=== PATIENT | female | born 1970 | race African-American/Black ===

== ENCOUNTER 2024-06-09 13:24 | Day surgery (SDC) | payer OTHER ==
[2024-06-09] MEDS ORDERED: Acetaminophen 500 MG TAB ONE (14:05)
[2024-06-09] MEDS ORDERED: diphenhydrAMINE 25 MG CAP ONE (14:05)
[2024-06-09] MEDS: Acetaminophen 500 MG TAB PO SCH (14:06)
[2024-06-09] MEDS: diphenhydrAMINE 25 MG CAP PO SCH (14:07)
[2024-06-09 14:44] VITALS: TEMP 98.6
[2024-06-09] MEDS ORDERED: cloNIDine 0.1 MG TAB PO PRN (15:21)
[2024-06-09 16:49] VITALS: BP 150/70
== END 2024-06-09 16:50 | disposition home or self-care (01) ==
LOC: ONC/OP 13:24
PROVIDERS: ATTEND Internal Medicine
DX: D64.9 Anemia, unspecified (principal); D69.6 Thrombocytopenia, unspecified
CPT/HCPCS: 36430; 86850; 86900; 86901; P9016

== ENCOUNTER 2024-06-19 13:09 | Day surgery (SDC) | payer OTHER ==
[2024-06-19] MEDS ORDERED: diphenhydrAMINE 25 MG CAP ONE (14:18)
[2024-06-19] MEDS ORDERED: Acetaminophen 500 MG TAB ONE (14:18)
[2024-06-19] MEDS: diphenhydrAMINE 25 MG CAP PO SCH (14:20)
[2024-06-19] MEDS: Acetaminophen 500 MG TAB PO SCH (14:20)
[2024-06-19 17:49] VITALS: BP 171/79; TEMP 98.1
== END 2024-06-19 17:50 | disposition home or self-care (01) ==
LOC: ONC/OP 13:09
PROVIDERS: ATTEND Internal Medicine
DX: D64.9 Anemia, unspecified (principal); D69.6 Thrombocytopenia, unspecified
CPT/HCPCS: 36430; 86850; 86900; 86901; P9016

== ENCOUNTER 2024-07-23 21:44 | Inpatient (IN) | payer OTHER ==
[2024-07-23] MEDS ORDERED: Acetaminophen 500 MG TAB ONE (22:44)
[2024-07-23] MEDS ORDERED: Morphine 2 MG/ML VIAL ONE (22:45)
[2024-07-23] MEDS ORDERED: diphenhydrAMINE 50 MG/ML VIAL ONE (22:45)
[2024-07-23] MEDS ORDERED: Ketorolac Tromethamine 30 MG (1 mL) VIAL ONE (22:45)
[2024-07-23] MEDS ORDERED: Metoclopramide HCl 10 MG (2 mL) VIAL ONE (22:45)
[2024-07-23 23:02] LABS: #Basophils Less than 0.03 10x3/uL (0.0-0.2); #Eosinophils Less than 0.03 10x3/uL (0.0-0.7); %Basophils 0.1 % (0.0-1.0); %Monocytes 0.6 % (0.0-10.0); %Neutrophils 87.4 % (42.0-75.0); Hematocrit 35.2 % (36.0-47.0); Hemoglobin 10.1 g/dL (12.0-16.0); Mean Corpuscular HGB CONC 28.7 g/dL (32.0-36.0); Mean Corpuscular Hemoglobin 22.3 pg (27.0-31.0); Mean Corpuscular Volume 77.9 fL (78.0-98.0); Mean Platelet Volume 8.7 fL (7.4-10.4); Platelet Count 335 10x3/uL (130-400); RBC Distribution Width 26.7 % (11.5-14.5); Red Blood Cell (RBC) Count 4.52 mill/uL (4.20-5.40)
[2024-07-23 23:18] LABS: ALT (SGPT) 10 U/L (Less than 34); AST (SGOT) 28 U/L (11-34); Albumin 3.2 g/dL (3.1-4.5); Alkaline Phosphatase 81 U/L (40-110); Anion Gap 14 mmol/L (10-20); BUN (Urea Nitrogen) 11 mg/dL (9.8-20.1); Bilirubin, Total 0.5 mg/dL (0.3-1.2); Calc. Creatinine Clearance 0 mL/min (70-130); Calcium 9.8 mg/dL (7.8-10.44); Carbon Dioxide 23 mmol/L (22-29); Chloride 104 mmol/L (98-107); Estimated GFR 104; Globulin 6.1 g/dL (2.4-3.5); Glucose 125 mg/dL (70-105); Potassium 3.7 mmol/L (3.5-5.1); Protein, Total 9.3 g/dL (6.0-8.3); Sodium 137 mmol/L (136-145)
[2024-07-23 23:35] LABS: Anisocytosis MODERATE=16-30 cells (100X) (0-5/hpf); Hypochromia SLIGHT = 6-15 cells (100X) (0-5/hpf); Microcytosis SLIGHT = 6-15 cells (100X) (0-5/hpf); Plasma Cells 0 % (0-0); Polychromasia SLIGHT = 2-3 cells (100X) (0-2/hpf)
[2024-07-23] MEDS ORDERED: hydrALAZINE 20 MG/ML VIAL ONE (23:42)
[2024-07-24] MEDS ORDERED: hydrALAZINE 20 MG/ML VIAL ONE (01:23)
[2024-07-24 01:25] LABS: Bacteria/HPF None Seen HPF (None Seen); Bilirubin Negative (Negative); Blood, Urine 1+ (Negative); CAUTI Indications for Culture Dysuria,urgency,freq; Clarity Clear (Clear); Glucose, Urine (Dipstick) Normal (Negative); Ketone, Urine Negative (Negative); Leukocyte Negative Leu/uL (Negative); Nitrite Negative (Negative); Protein, Urine (Dipstick) 50 mg/dL (Neg-Trace); RBC/HPF 0-3 HPF (0-3); Specific Gravity, Urine 1.007 (1.002-1.036); Squamous Epithelial 0-3 HPF (0-3); Urobilinogen Normal mg/dL (Less than 2); WBC/HPF None Seen HPF (0-3)
[2024-07-24 01:27] LABS: Urine Culture Reflex No No
[2024-07-24] MEDS ORDERED: Ondansetron PF 4 MG/2 ML Vial IVP PRN (01:50)
[2024-07-24] MEDS ORDERED: hydrALAZINE 20 MG/ML VIAL SLOW IVP PRN (01:53)
[2024-07-24] MEDS: hydrALAZINE 20 MG/ML VIAL SLOW IVP PRN (04:12)
[2024-07-24 04:18] VITALS: BMI 37.0
[2024-07-24 04:45] LABS: #Basophils Less than 0.03 10x3/uL (0.0-0.2); #Eosinophils Less than 0.03 10x3/uL (0.0-0.7); %Basophils 0.2 % (0.0-1.0); %Lymphocytes 10.1 % (21.0-51.0); %Monocytes 2.9 % (0.0-10.0); %Neutrophils 86.1 % (42.0-75.0); Hematocrit 35.2 % (36.0-47.0); Hemoglobin 9.9 g/dL (12.0-16.0); Mean Corpuscular HGB CONC 28.1 g/dL (32.0-36.0); Mean Corpuscular Hemoglobin 22.2 pg (27.0-31.0); Mean Corpuscular Volume 79.1 fL (78.0-98.0); Mean Platelet Volume 8.7 fL (7.4-10.4); Platelet Count 305 10x3/uL (130-400); RBC Distribution Width 26.7 % (11.5-14.5); Red Blood Cell (RBC) Count 4.45 mill/uL (4.20-5.40)
[2024-07-24 04:52] LABS: ALT (SGPT) 9 U/L (Less than 34); AST (SGOT) 23 U/L (11-34); Albumin 3.1 g/dL (3.1-4.5); Alkaline Phosphatase 76 U/L (40-110); Anion Gap 14 mmol/L (10-20); BUN (Urea Nitrogen) 12 mg/dL (9.8-20.1); Bilirubin, Total 0.4 mg/dL (0.3-1.2); Calc. Creatinine Clearance 145 mL/min (70-130); Calcium 9.9 mg/dL (7.8-10.44); Carbon Dioxide 25 mmol/L (22-29); Chloride 104 mmol/L (98-107); Estimated GFR 93; Globulin 5.6 g/dL (2.4-3.5); Glucose 116 mg/dL (70-105); Potassium 3.8 mmol/L (3.5-5.1); Protein, Total 8.7 g/dL (6.0-8.3); Sodium 139 mmol/L (136-145)
[2024-07-24] MEDS: Hydrochlorothiazide 25 MG TAB PO SCH (05:58)
[2024-07-24] MEDS: Metoprolol Tartrate 25 MG TAB PO SCH (05:58)
[2024-07-24] MEDS: Losartan 25 MG TAB PO SCH (05:59)
[2024-07-24] MEDS: Acetaminophen 325 MG TAB PO PRN (06:01)
[2024-07-24] MEDS: Famotidine 20 MG TAB PO SCH (08:12)
[2024-07-24] MEDS: Enoxaparin 40 MG (0.4 mL) SYRINGE SC SCH (08:12)
[2024-07-24] MEDS: Ferrous Sulfate 325 MG TAB PO SCH (08:12)
[2024-07-24] MEDS: traMADol HCl 50 MG TAB PO PRN (08:19)
[2024-07-24] MEDS ORDERED: HYDROcodone/Acetaminophen 10/325 mg Tablet PO PRN (08:48)
[2024-07-24] MEDS ORDERED: NIFEdipine XL 30 MG ER.TAB PO SCH (09:00)
[2024-07-24] MEDS ORDERED: Gabapentin 300 MG CAP PO PRN (09:00)
[2024-07-24] MEDS: Carvedilol 25 MG TAB PO SCH ×2 (09:41→17:02)
[2024-07-24] MEDS: Famotidine/PF 20 mg/2ml Vial SLOW IVP SCH (10:06)
[2024-07-24] MEDS: Ketorolac Tromethamine 30 MG (1 mL) VIAL IVP PRN (11:23)
[2024-07-24 12:58] VITALS: BMI 37.0
[2024-07-24] MEDS ORDERED: Magnevist 469MG/ML 20 ML VIAL ONE (15:12)
[2024-07-24] MEDS: Amlodipine 10 MG TAB PO SCH (17:02)
[2024-07-24] MEDS: Ondansetron ODT 4 MG TAB PO PRN (19:10)
[2024-07-25] MEDS: Amlodipine 5 MG TAB PO SCH ×2 (07:56→10:35)
[2024-07-25] MEDS: Hydrochlorothiazide 25 MG TAB PO SCH (10:35)
[2024-07-25] MEDS: Methimazole 5 MG TAB PO SCH (21:39)
[2024-07-26 04:21] LABS: #Basophils 0.03 10x3/uL (0.0-0.2); %Basophils 0.6 % (0.0-1.0); %Eosinophils 0.8 % (0.0-10.0); %Monocytes 4.3 % (0.0-10.0); %Neutrophils 68.1 % (42.0-75.0); Hematocrit 32.4 % (36.0-47.0); Hemoglobin 9.3 g/dL (12.0-16.0); Mean Corpuscular HGB CONC 28.7 g/dL (32.0-36.0); Mean Corpuscular Hemoglobin 22.5 pg (27.0-31.0); Mean Corpuscular Volume 78.3 fL (78.0-98.0); Mean Platelet Volume 9.1 fL (7.4-10.4); Platelet Count 256 10x3/uL (130-400); RBC Distribution Width 26.6 % (11.5-14.5); Red Blood Cell (RBC) Count 4.14 mill/uL (4.20-5.40)
[2024-07-26 04:29] LABS: Anion Gap 14 mmol/L (10-20); BUN (Urea Nitrogen) 13 mg/dL (9.8-20.1); Calc. Creatinine Clearance 155 mL/min (70-130); Calcium 9.8 mg/dL (7.8-10.44); Carbon Dioxide 26 mmol/L (22-29); Chloride 99 mmol/L (98-107); Estimated GFR 101; Glucose 86 mg/dL (70-105); Potassium 3.2 mmol/L (3.5-5.1); Sodium 136 mmol/L (136-145)
[2024-07-26 04:52] LABS: Anisocytosis MODERATE=16-30 cells HPF (0-5); Hypochromia SLIGHT = 6-15 cells HPF (0-5); Macrocytosis SLIGHT = 6-15 cells HPF (0-5); Platelet Adequacy Comment Platelets Normal; Polychromasia MODERATE = 3-4 cells HPF (0-2); Rouleaux Formation SLIGHT = 1-5 cells HPF (None Seen); Spherocytes SLIGHT = 1-5 cells HPF (None Seen); Tear Drops SLIGHT = 2-5 cells HPF (0-1)
[2024-07-26] MEDS: Hydrochlorothiazide 25 MG TAB PO SCH (08:32)
[2024-07-26] MEDS: Amlodipine 10 MG TAB PO SCH (08:33)
[2024-07-26 11:12] VITALS: BP 127/67; TEMP 98.1
[2024-07-26] MEDS: Potassium Bicarbonate/Cit Ac 20 MEQ TAB PO SCH (11:12)
[2024-07-26] MEDS: hydrALAZINE 25 MG TAB PO SCH ×2 (11:13→15:02)
[2024-07-28 12:03] LABS: Thyroglobulin Antibody Less than 12.0 IU/mL (<40 Normal); Thyroid Peroxidase IgG Ab Less than 4.0 IU/mL (<25 Normal)
== END 2024-07-26 15:40 | disposition home or self-care (01) | DRG 305 ==
LOC: ERS 21:44 → OBS 07-24 01:50 → OBSVTOIN 07-24 15:43 → 2NO 07-24 16:28
PROVIDERS: ADMIT Internal Medicine; ATTEND Hospitalist
DX: I16.0 Hypertensive urgency (principal); C56.9 Malignant neoplasm of unspecified ovary; I10 Essential (primary) hypertension; E66.9 Obesity, unspecified; E05.90 Thyrotoxicosis, unspecified without thyrotoxic crisis or storm; Z98.890 Other specified postprocedural states; Z68.37 Body mass index [BMI] 37.0-37.9, adult; Z79.60 Long term (current) use of unspecified immunomodulators and immunosuppressants; Z79.899 Other long term (current) drug therapy
CPT/HCPCS: 36415; 70450; 70553; 71045; 76376; 76536; 80048; 80053; 81001; 82550; 83735; 83880; 84439; 84443; 84445; 85025; 86376; 86800; 93005; 93306; 93970; 96372; 96374; 96375; 96376; G0378; J0360; J1200; J1650; J1885; J2272; J2765; J3490; Q0162

== ENCOUNTER 2025-02-23 09:33 | Emergency (ER) | payer OTHER ==
[2025-02-23 10:28] LABS: #Basophils 0.03 10x3/uL (0.0-0.2); #Eosinophils Less than 0.03 10x3/uL (0.0-0.7); #Monocytes 0.81 10x3/uL (0.11-0.59); #Neutrophils 10.53 10x3/uL (1.40-6.50); %Basophils 0.2 % (0.0-1.0); %Eosinophils 0.1 % (0.0-10.0); %Lymphocytes 10.6 % (21.0-51.0); %Monocytes 6.3 % (0.0-10.0); %Neutrophils 82.0 % (42.0-75.0); Hematocrit 28.7 % (36.0-47.0); Hemoglobin 9.9 g/dL (12.0-16.0); Mean Corpuscular Hemoglobin 33.1 pg (27.0-31.0); Mean Corpuscular Volume 96.0 fL (78.0-98.0); Platelet Count 196 10x3/uL (130-400); Red Blood Cell (RBC) Count 2.99 mill/uL (4.20-5.40); White Blood Cell (WBC) Count 12.84 10x3/uL (4.8-10.8)
[2025-02-23 10:41] LABS: ALT (SGPT) 12 U/L (Less than 34); AST (SGOT) 21 U/L (11-34); Albumin 2.9 g/dL (3.1-4.5); Alkaline Phosphatase 93 U/L (40-110); Anion Gap 19 mmol/L (10-20); BUN (Urea Nitrogen) 23 mg/dL (9.8-20.1); Bilirubin, Total 0.6 mg/dL (0.3-1.2); Calc. Creatinine Clearance 0 mL/min (70-130); Calcium 9.7 mg/dL (7.8-10.44); Carbon Dioxide 24 mmol/L (22-29); Chloride 97 mmol/L (98-107); Globulin 5.2 g/dL (2.4-3.5); Glucose 101 mg/dL (70-105); Lipase 24 U/L (8-78); Potassium 3.5 mmol/L (3.5-5.1); Sodium 136 mmol/L (136-145)
[2025-02-23 10:42] LABS: Bacteria/HPF None Seen HPF (None Seen); CAUTI Indications for Culture Pelvic or flank pain; Glucose, Urine (Dipstick) Normal (Negative); Leukocyte 75 Leu/uL (Negative); Protein, Urine (Dipstick) 20 mg/dL (Neg-Trace); Specific Gravity, Urine 1.027 (1.002-1.036)
[2025-02-23 10:47] LABS: Urine Culture Reflex No No
[2025-02-23] MEDS ORDERED: Ketorolac Tromethamine 30 MG (1 mL) VIAL ONE (11:09)
[2025-02-23] MEDS ORDERED: Boostrix 0.5 ML (Tdap) VIAL (>/=7 yrs of age) ONE (11:10)
[2025-02-23] MEDS ORDERED: Ondansetron PF 4 MG/2 ML Vial ONE (11:10)
[2025-02-23] MEDS ORDERED: Iopamidol-370 76% 500 ML MDV (1 ML CHARGE) ONE (14:20)
== END 2025-02-23 22:43 ==
LOC: ERS 09:33
DX: K56.600 Partial intestinal obstruction, unspecified as to cause (principal); I10 Essential (primary) hypertension; Z23 Encounter for immunization; D50.9 Iron deficiency anemia, unspecified; C53.8 Malignant neoplasm of overlapping sites of cervix uteri
CPT/HCPCS: 36415; 74177; 80053; 81001; 83690; 85025; 86304; 90471; 90715; 96361; 96374; 96375; J1885; J2270; J2405; Q9967